=== PATIENT | female | born 1950 | race Caucasian/White ===

== ENCOUNTER 2018-05-18 08:51 | Day surgery (SDC) | payer OTHER ==
[~2018-05-18] VITALS: Ht 160 cm; Wt 77.6 kg
[~2018-05-18 08:51] MED LIST: IBUP400 PO
[2018-05-19 03:40] LABS: BASOPHILS ABSOLUTE AUTO 0.01 K/mm3 (0.00-0.23); BASOPHILS PERCENT AUTO 0 % (0-2); EOSINOPHILS ABSOLUTE AUTO 0.01 K/mm3 (0.00-0.68); EOSINOPHILS PERCENT AUTO 0 % (0-6); Hematocrit 37.3 % (33.0-51.0); Hemoglobin 12.7 g/dL (11.5-16.0); IMMATURE GRAN ABSOLUTE AUTO 0.03 K/mm3 (0.00-0.10); IMMATURE GRAN PERCENT AUTO 0 % (0-1); LYMPHOCYTES ABSOLUTE AUTO 1.32 K/mm3 (0.84-5.20); LYMPHOCYTES PERCENT AUTO 12 % (21-46); MONOCYTES PERCENT AUTO 8 % (4-13); Mean Corpuscular HGB 30.3 pg (26.0-34.0); Mean Corpuscular Volume 89 fL (80-100); Mean Platelet Volume 9.3 fL (9.1-12.4); NEUTROPHILS ABSOLUTE AUTO 9.18 K/mm3 (1.96-9.15); NEUTROPHILS PERCENT AUTO 80 % (41-73); Platelet Count 238 K/mm3 (150-400); RDW Coefficient Variation 12.5 % (11.7-14.2); RDW Standard Deviation 40.7 fL (35.1-46.3); Red Blood Cell Count 4.19 M/mm3 (3.80-5.20); White Blood Cell Count 11.45 K/mm3 (4.00-11.30)
[2018-05-19 03:58] LABS: Anion Gap 7 mmol/L (6-16); Blood Urea Nitrogen 13 mg/dL (8-24); Bun/Creatinine Ratio 16.6 (12.0-20.0); CO2, Blood 28 mmol/L (21-32); Calcium, Blood 8.7 mg/dL (8.5-10.1); Chloride, Blood 106 mmol/L (98-108); Creatinine, Blood 0.78 mg/dL (0.40-1.00); Glomerular Filtration Rate >60 (60-); Glucose, Blood 119 mg/dL (70-99); Potassium, Blood 4.3 mmol/L (3.5-5.5); Sodium, Blood 141 mmol/L (136-145)
[2018-05-19] MEDS ORDERED: Oxycodone-Apap1 EAC3 PO (13:39)
[2018-05-19] MEDS ORDERED: ASPI325EC PO (13:42)
== END 2018-05-19 14:15 | disposition home or self-care (01) ==
LOC: ORSCMMR 08:51 → ORD 10:30 → ORSCMMR 10:30 → SURS 14:37 → ORSCMMR 05-19 14:15
PROVIDERS: Orthopaedic Surgery
PROC: 0SRD0J9 Replacement of Left Knee Joint with Synthetic Substitute, Cemented, Open Approach (ICD-10-PCS; principal; 2018-05-18 10:30)
DX: M17.12 Unilateral primary osteoarthritis, left knee (principal); Z01.812 Encounter for preprocedural laboratory examination; Z01.818 Encounter for other preprocedural examination; K21.9 Gastro-esophageal reflux disease without esophagitis
CPT/HCPCS: 36415; 73560-LT; 80048; 85025; 86850; 86900; 86901; 88300; 97110; 97116; 97162; 97530; C1713; C1776; G8978; G8979; J0171; J0690; J0735; J1100; J1885; J2250; J2405; J2710; J2795; J3010; J7120

== ENCOUNTER 2020-10-19 14:36 | Inpatient (IN) | payer OTHER ==
[~2020-10-19] VITALS: Ht 157.5 cm; Wt 77.1 kg
[~2020-10-19 14:36] MED LIST changes: +ASPI325EC PO; +MYRBETRIQ25 MG PO; +Oxycodone-Apap1 EAC3 PO; +ZYRTEC10 M1 PO
[2020-10-22] MEDS ORDERED: BENADRYL25 MG PO (13:20)
[2020-10-22] MEDS ORDERED: CITA20 PO (13:23)
--- NOTE | 2020-10-24 06:45 | NUR ---
Ambulatory in Day Surgery. Surgical site prepped with 2% Chlorhexidine cloth wipe. Patient states colon prep results clear. History, Chart, Medications and Allergies reviewed before start of procedure. Lungs clear T/O to Auscultation. Patient confirms NPO status and agrees with scheduled surgery. Patient reports completing. Chlorhexadine shower X2 prior to admission to hospital.
--- NOTE | 2020-10-24 19:26 | NUR ---
SHIFT SUMMARY PODO ZACH AND JAILENE CHANG. PT AOX4. PAIN STARTING TO INCREASE IN THE AFTERNOON. PAIN MANAGED W/ FENTANYL, TORADOL AND VICODIN. PT HENRIETTA CLEAR DIET, DENIES N/V. WILL ADVANCE HENRIETTA TO FULL LIQ. PT DENIES PASSING FLATUS. MID ABD KOBI IS CDI. 3 STERI STRIPS IN ABD REGIONS ARE CDI WELL. PERIPAD REMAIN SCANT BLEED. PT REPORTS R SHOULDER PAIN. ENC AMBULATIONA AND TURNING Q2. LR IV FLUID INFUSING ON R FOREARM. CALL LIGHT W/IN REACH.
[2020-10-25 04:22] LABS: BASOPHILS ABSOLUTE AUTO 0.02 K/mm3 (0.00-0.23); BASOPHILS PERCENT AUTO 0 % (0-2); EOSINOPHILS PERCENT AUTO 0 % (0-6); Hematocrit 38.5 % (33.0-51.0); Hemoglobin 12.7 g/dL (11.5-16.0); IMMATURE GRAN ABSOLUTE AUTO 0.04 K/mm3 (0.00-0.10); IMMATURE GRAN PERCENT AUTO 0 % (0-1); LYMPHOCYTES ABSOLUTE AUTO 1.64 K/mm3 (0.84-5.20); LYMPHOCYTES PERCENT AUTO 13 % (21-46); MONOCYTES ABSOLUTE AUTO 1.16 K/mm3 (0.16-1.47); MONOCYTES PERCENT AUTO 9 % (4-13); Mean Corpuscular HGB 29.6 pg (26.0-34.0); Mean Corpuscular Volume 90 fL (80-100); Mean Platelet Volume 9.2 fL (9.1-12.4); NEUTROPHILS ABSOLUTE AUTO 9.75 K/mm3 (1.96-9.15); NEUTROPHILS PERCENT AUTO 77 % (41-73); Platelet Count 225 K/mm3 (150-400); RDW Coefficient Variation 12.7 % (11.7-14.2); Red Blood Cell Count 4.29 M/mm3 (3.80-5.20); White Blood Cell Count 12.61 K/mm3 (4.00-11.30)
[2020-10-25 04:38] LABS: Anion Gap 6 mmol/L (6-16); Blood Urea Nitrogen 9 mg/dL (8-24); Bun/Creatinine Ratio 12.3 (12.0-20.0); CO2, Blood 28 mmol/L (21-32); Calcium, Blood 8.2 mg/dL (8.5-10.1); Chloride, Blood 107 mmol/L (98-108); Creatinine, Blood 0.73 mg/dL (0.40-1.00); Glomerular Filtration Rate >60 (60-); Glucose, Blood 121 mg/dL (70-99); Potassium, Blood 3.5 mmol/L (3.5-5.5); Sodium, Blood 141 mmol/L (136-145)
--- NOTE | 2020-10-25 05:04 | NUR ---
SHIFT SUMMARY POD#1. AAOX4. DISCOMFORT CONTROLLED WITH 2 PAIN PILLS Q4H. ACID REFLUX DECREASED WITH TUMS X1. ABD INCISION WITH KOBI C/D/I. MARTINEZ SECURE/DRAINING. IVF + ABX PER ORDERS. RESTED WELL T/O NIGHT. MICHELLE TO BE DC'D THIS AM UPON PT'S AWAKENING. PT TOLERATING SIPS FULL LIQUIDS. RESTING AT THIS TIME WITH CALL LIGHT IN REACH.
[2020-10-25] MEDS ORDERED: MYRBETRIQ50 MG PO ×2 (08:38→10:21)
--- NOTE | 2020-10-25 15:09 | NUR ---
SHIFT SUMMARY PT A&OX4, VSS/RA, POD1 LAP COLECTOMY & LAVH, 3 LAP SITES W/STERIS AND MIDLINE KOBI WNL. PAIN MANAGED WITH 5 MG NORCO AND TORADOL. AMBULATING W/FWW TO CHAIR AND BRP. HENRIETTA FULL LIQUID DIET, DENIES N&V. VOIDING WELL. WILL REPORT TO ONCOMING NOC RN.
--- NOTE | 2020-10-26 04:42 | NUR ---
SHIFT SUMMARY POD2 LAP MOOK W/ LAVH, A/O X4, VSS, TOLERATING FULL LIQUID DIET, VOIDING WELL, AMBULATING WELL, PAIN WELL CONTROLLED PER EMAR, ABD BINDER IN PLACE. CALL LIGHT IN REACH, WILL CONTINUE TO MONITOR AND REPORT TO ONCOMING DAY RN.
--- NOTE | 2020-10-26 17:13 | NUR ---
Shift summary Pain controlled with 1 [place]. Patient had multiple loose brown stools this shift. Patient has been independent in the room. Tolerating regular diet. Pao pad dry this evening. Abd incisions CDI. Call light within patient reach.
--- NOTE | 2020-10-27 06:39 | NUR ---
SHIFT SUMMARY POD3 LAP COLECTOMY/LAVH, A/O X4, VSS, AMBULATES WELL TO BATHROOM W/ FWW AND 1 PERSON SBA, VOIDING WELL, 1 SMALL BM THIS MORNING, TOLERATING PO FLUIDS/REG DIET, PAIN WELL CONTROLLED PER EMAR. NO ACUTE EVENTS DURING DRILLER MACHINE. CALL LIGHT IN REACH, WILL CONTINUE TO MONITOR AND REPORT TO ONCOMING DAY RN.
[2020-10-27] MEDS ORDERED: HYDROCODONE-AC1 EA10 PO (10:04)
--- NOTE | 2020-10-27 10:12 | NUR ---
DR. GALAVIZ COMPLETED ROUNDS, PLAN FOR DISCHARGE TODAY WILL AWAIT ORDERS
--- NOTE | 2020-10-27 11:54 | NUR ---
DISCHARGE: PACKET PRINTED AND PT EDUCATED. GIVEN SCRIPT FOR [facility]. PT LEFT UNIT ABOUT 1050 VIA WHEELCHAIR WITH GAGE GARCÍA AND PT
== END 2020-10-27 11:28 | disposition home or self-care (01) | DRG 740 ==
LOC: SURS 10-24 06:02 → PRE IP 10-24 07:30 → SURS 10-24 13:58
PROVIDERS: Obstetrics & Gynecology; ADMIT Surgery
PROC: 0DTF0ZZ Resection of Right Large Intestine, Open Approach (ICD-10-PCS; principal; 2020-10-24 07:30)
PROC: 0UT9FZZ Resection of Uterus, Via Natural or Artificial Opening With Percutaneous Endoscopic Assistance (ICD-10-PCS; 2020-10-24 07:30)
PROC: 0UT2FZZ Resection of Bilateral Ovaries, Via Natural or Artificial Opening With Percutaneous Endoscopic Assistance (ICD-10-PCS; 2020-10-24 07:30)
PROC: 0UT7FZZ Resection of Bilateral Fallopian Tubes, Via Natural or Artificial Opening With Percutaneous Endoscopic Assistance (ICD-10-PCS; 2020-10-24 07:30)
DX: C54.1 Malignant neoplasm of endometrium (principal); C19 Malignant neoplasm of rectosigmoid junction; N83.201 Unspecified ovarian cyst, right side
CPT/HCPCS: 36415; 80048; 85025; 88305; 88307; 88309; A9270-GY; C9113; J0171; J0295; J1100; J1650; J1885; J2250; J2405; J2704; J3010; J7120

== ENCOUNTER 2022-06-19 13:06 | Day surgery (SDC) | payer OTHER ==
[~2022-06-19] VITALS: Ht 157.5 cm; Wt 80.8 kg
[~2022-06-19 13:06] MED LIST changes: +BENADRYL25 MG PO; +CITA20 PO; +HYDROCODONE-AC1 EA10 PO; +MYRBETRIQ50 MG PO
== END 2022-06-19 15:28 | disposition home or self-care (01) ==
LOC: ORSCSDS 13:06
PROVIDERS: Surgery
PROC: 0DBM8ZX Excision of Descending Colon, Via Natural or Artificial Opening Endoscopic, Diagnostic (ICD-10-PCS; principal; 2022-06-19 14:15)
DX: Z12.11 Encounter for screening for malignant neoplasm of colon (principal); Z85.038 Personal history of other malignant neoplasm of large intestine; D12.4 Benign neoplasm of descending colon; E66.9 Obesity, unspecified; Z68.32 Body mass index [BMI] 32.0-32.9, adult; Z79.899 Other long term (current) drug therapy
CPT/HCPCS: 88305; J0461; J2405; J2704; J7120

== ENCOUNTER → 2023-08-11 | Outpatient (CLI) | payer OTHER ==
[2023-08-11 19:17] LABS: Appearance, Urine Cloudy (Clear); Blood, Urine 4+ (Neg); Glucose Qualitative, Urine Neg (Neg); Ketones, Urine Neg (Neg); Leukocyte Esterase, Urine 1+ (Neg); Nitrite, Urine Pos (Neg); Protein, Urine 3+ (Neg); Urobilinogen, Urine 3+ (Normal)
[2023-08-11 19:27] LABS: Bilirubin, Urine 3+ (Neg); Color, Urine Orange (P-Yellow)
[2023-08-11 19:28] LABS: Red Blood Cells, Urine TNTC /hpf (0-2); Squamous Epithelial Cells Few /hpf (Few); White Blood Cells, Urine TNTC /hpf (0-5)
[2023-08-11 19:31] LABS: Amorphous Heavy (0-Heavy); Bacteria Mod /hpf
== END ==
LOC: LAB 18:34 → LAB SHORT 18:34
PROVIDERS: Internal Medicine
DX: R30.0 Dysuria (principal)
CPT/HCPCS: 81001; 87077; 87086; 87186

== ENCOUNTER → 2023-12-04 | Outpatient (CLI) | payer OTHER | LOC: LAB SHORT 13:34 → LAB 13:34 | DX: N39.0 Urinary tract infection, site not specified (principal) | CPT/HCPCS: 87086 ==

== ENCOUNTER 2025-07-14 07:15 | Day surgery (SDC) | payer OTHER ==
[~2025-07-14] VITALS: Ht 157.5 cm; Wt 83.8 kg
[~2025-07-14 07:15] MED LIST changes: +OLIVE PO; +TURMERIC PO; +VITAMIN D325 MC3 PO; +[UNRECOGNIZED DRUG - OTHER] PO; +[UNRECOGNIZED DRUG - OTHER] PO
[2025-07-14] MEDS ORDERED: HYDROCODONE (08:03)
[2025-07-14 09:29] VITALS: BP 133/70
== END 2025-07-14 09:32 | disposition home or self-care (01) ==
LOC: ORSCSDS 07:15
PROVIDERS: Surgery
PROC: 0DJD8ZZ Inspection of Lower Intestinal Tract, Via Natural or Artificial Opening Endoscopic (ICD-10-PCS; principal; 2025-07-14 08:45)
DX: Z85.038 Personal history of other malignant neoplasm of large intestine (principal); Z90.49 Acquired absence of other specified parts of digestive tract; Z86.0101 Personal history of adenomatous and serrated colon polyps; I10 Essential (primary) hypertension; Z85.42 Personal history of malignant neoplasm of other parts of uterus; F32.A Depression, unspecified; Z79.899 Other long term (current) drug therapy
CPT/HCPCS: J2704; J7120